=== PATIENT | male | born 1995 | race Two or more races ===

== ENCOUNTER 2019-01-16 04:21 | Emergency (ER) | payer SELFPAY ==
[~2019-01-16] VITALS: Ht 180.3 cm; Wt 113.4 kg
[2019-01-16] MEDS ORDERED: ABILIFY15 MG ORAL (04:30)
[2019-01-16] MEDS ORDERED: LEXAPRO10 MG ORAL (04:30)
[2019-01-16] MEDS ORDERED: NEURONTIN100 MG ORAL (04:30)
--- NOTE | 2019-01-16 04:37 | Emergency Room Report ---
History of Present Illness General Source: Patient, EMS, Law Enforcement (Tino Hayes MD) Present Illness HPI Patient presents with cuts to his hand after punching a glass window. His history of schizophrenia and said he wanted to harm himself. PD were summoned to the house by his mother. He has some cuts on his right hand. PD summoned EMS. They transported the patient to us. The patient denies suicidal ideation at this time. He states he's been taking his Abilify. He says he takes 30 mg. He was last hospitalized 2 weeks ago at [facility]. They didn't change his medications. He was hospitalized for 3 days. He denies other somatic complaints at this time. Last tetanus 1 year ago. (Tino Hayes MD) Allergies: Coded Allergies: No Known Allergies (Unverified , 01/16/19) Patient History Past Medical History: see triage record Social History: Denies: smoking, alcohol use, drug use Social History Narrative lives with Mom Reviewed Nursing Documentation: PMH: Agreed; PSxH: Agreed (Tino Hayes MD) Review of Systems All Other Systems: negative except mentioned in HPI (Tino Hayes MD) Physical Exam Vital Signs Date Time Temp Pulse Resp B/P (MAP) Pulse Ox O2 Delivery O2 Flow Rate FiO2 01/16/19 04:27 98.4 88 16 126/90 100 Room Air Sp02 EP Interpretation: reviewed, normal General Appearance: well appearing, no apparent distress, GCS 15, obese Head: normocephalic Eyes: bilateral eye normal inspection, bilateral eye PERRL, bilateral eye EOMI ENT: moist mucus membranes Neck: supple Respiratory: lungs clear, normal breath sounds Cardiovascular #1: regular rate, rhythm Cardiovascular #2: 2+ radial (R) Gastrointestinal: normal inspection, normal bowel sounds, non tender, no mass, non-distended Musculoskeletal: back normal, gait/station normal, normal range of motion Neurologic: alert, oriented x3 Psychiatric: no suicidal/homicidal ideation, depressed affect, other - he states he is sane at this time Skin: normal inspection, warm/dry, other - striae (Tino Hayes MD) Medical Decision Making Diagnostic Impression: Primary Impression: Schizoaffective disorder-chronic with exacerbation Additional Impressions: Leukocytosis Qualified Codes: D72.828 - Other elevated white blood cell count Superficial laceration of hand Qualified Codes: S61.411A - Laceration without foreign body of right hand, initial encounter ER Course Patient presents with PD with history of schizophrenia and acting out. Differential includes exacerbation of schizoaffective disorder, impulsive behavior, electrolyte imbalance, drug ingestion amongst others. Evaluation will be with labs. The patient is no longer suicidal at this time however requires observation and as severe as the police are patient patient on a 5150. Patient appears cushingoid and cortisol level was drawn. It may not be relevant if this is a send out. Labs with leukocytosis. Patient afebrile. Will hydrate and repeat. Sign out to Dr. Díaz. Laboratory Tests Test 01/16/19 04:40 01/16/19 07:30 White Blood Count 18.3 K/UL (4.8-10.8) H 15.3 K/UL (4.8-10.8) H Red Blood Count 5.51 M/UL (4.70-6.10) 4.89 M/UL (4.70-6.10) Hemoglobin 16.9 G/DL (14.2-18.0) 15.0 G/DL (14.2-18.0) Hematocrit 50.4 % (42.0-52.0) 45.6 % (42.0-52.0) Mean Corpuscular Volume 92 FL (80-99) 93 FL (80-99) Mean Corpuscular Hemoglobin 30.7 PG (27.0-31.0) 30.7 PG (27.0-31.0) Mean Corpuscular Hemoglobin Concent 33.5 G/DL (32.0-36.0) 32.9 G/DL (32.0-36.0) Red Cell Distribution Width 12.1 % (11.6-14.8) 12.2 % (11.6-14.8) Platelet Count 379 K/UL (150-450) 336 K/UL (150-450) Mean Platelet Volume 6.3 FL (6.5-10.1) L 6.8 FL (6.5-10.1) Neutrophils (%) (Auto) % (45.0-75.0) 64.7 % (45.0-75.0) Lymphocytes (%) (Auto) % (20.0-45.0) 26.8 % (20.0-45.0) Monocytes (%) (Auto) % (1.0-10.0) 5.4 % (1.0-10.0) Eosinophils (%) (Auto) % (0.0-3.0) 2.4 % (0.0-3.0) Basophils (%) (Auto) % (0.0-2.0) 0.8 % (0.0-2.0) Urine Color Pale yellow Urine Appearance Clear Urine pH 6.5 (4.5-8.0) Urine Specific Clark 1.015 (1.005-1.035) Urine Protein Negative (NEGATIVE) Urine Glucose (UA) Negative (NEGATIVE) Urine Ketones Negative (NEGATIVE) Urine Blood Negative (NEGATIVE) Urine Nitrite Negative (NEGATIVE) Urine Bilirubin Negative (NEGATIVE) Urine Urobilinogen 4 MG/DL (0.0-1.0) H Urine Leukocyte Esterase Negative (NEGATIVE) Sodium Level 138 MMOL/L (136-145) Potassium Level 3.7 MMOL/L (3.5-5.1) Chloride Level 100 MMOL/L (98-107) Carbon Dioxide Level 27 MMOL/L (21-32) Anion Gap 11 mmol/L (5-15) Blood Urea Nitrogen 12 mg/dL (7-18) Creatinine 0.9 MG/DL (0.55-1.30) Estimate Glomerular Filtration Rate > 60 mL/min (>60) Glucose Level 121 MG/DL (74-106) H Calcium Level 9.4 MG/DL (8.5-10.1) Total Bilirubin 0.3 MG/DL (0.2-1.0) Aspartate Amino Transferase (AST) 24 U/L (15-37) Alanine Aminotransferase (ALT) 62 U/L (12-78) Alkaline Phosphatase 108 U/L (46-116) Total Creatine Kinase 151 U/L (26-308) Total Protein 8.5 G/DL (6.4-8.2) H Albumin 3.6 G/DL (3.4-5.0) Globulin 4.9 g/dL Albumin/Globulin Ratio 0.7 (1.0-2.7) L Thyroid Stimulating Hormone (TSH) 2.713 uiU/mL (0.358-3.740) Cortisol 7.2 UG/DL Salicylates Level 3.4 ug/mL (2.8-20) Urine Opiates Screen Negative (NEGATIVE) Acetaminophen Level < 2 MCG/ML (10-30) L Urine Barbiturates Screen Negative (NEGATIVE) Phencyclidine (PCP) Screen Negative (NEGATIVE) Urine Amphetamines Screen Negative (NEGATIVE) Urine Benzodiazepines Screen Negative (NEGATIVE) Urine Cocaine Screen Negative (NEGATIVE) Urine Marijuana (THC) Screen Negative (NEGATIVE) Serum Alcohol < 3 mg/dL (Tino Hayes MD) ER Course patient's wbc has decreased from 18k to 15k, with no bandemia or leftward shift , so patient is medically cleared by me at this time. Pt accepted by Dr. Vazquez at [facility]. (KILLIAN DÍAZ M.D) Last Vital Signs Date Time Temp Pulse Resp B/P (MAP) Pulse Ox O2 Delivery O2 Flow Rate FiO2 01/16/19 12:35 98.7 98 14 121/63 97 Room Air Status: improved (Tino Hayes MD) Disposition: XFER SHT-TRM HOSP Condition: Serious Tino Hayes MD Jan 16, 2019 04:37 KILLIAN DÍAZ M.D Jan 16, 2019 08:24
[2019-01-16 04:45] VITALS: BP 126/90
[2019-01-16] MEDS ORDERED: Bacitracin Oint UD TOPIC ONE (04:45)
[2019-01-16 05:01] LABS: APPEARANCE,URINE CLEAR; BILIRUBIN, URINE NEGATIVE (NEGATIVE); COLOR,URINE PALE YELLOW; GLUCOSE, URINE (UA) NEGATIVE (NEGATIVE); KETONES,URINE NEGATIVE (NEGATIVE); LEUKOCYTE ESTERASE ,URINE NEGATIVE (NEGATIVE); NITRITE,URINE NEGATIVE (NEGATIVE); PH,URINE 6.5 (4.5-8.0); UROBILINOGEN,URINE 4 MG/DL (0.0-1.0)
[2019-01-16 05:03] LABS: HEMATOCRIT 50.4 % (42.0-52.0); HEMOGLOBIN 16.9 G/DL (14.2-18.0); MEAN CORPUSCULAR VOLUME 92 FL (80-99); PLATELET COUNT 379 K/UL (150-450); RED BLOOD COUNT 5.51 M/UL (4.70-6.10); RED CELL DISTRIBUTION WIDTH 12.1 % (11.6-14.8); WHITE BLOOD COUNT 18.3 K/UL (4.8-10.8)
[2019-01-16 05:06] LABS: ANION GAP 11 mmol/L (5-15); BLOOD UREA NITROGEN 12 mg/dL (7-18); CALCIUM 9.4 MG/DL (8.5-10.1); CARBON DIOXIDE 27 MMOL/L (21-32); CHLORIDE 100 MMOL/L (98-107); CREATININE 0.9 MG/DL (0.55-1.30); POTASSIUM 3.7 MMOL/L (3.5-5.1); PROTEIN,URINE NEGATIVE (NEGATIVE); SODIUM 138 MMOL/L (136-145)
[2019-01-16 05:18] LABS: ALANINE AMINOTRANSFERASE 62 U/L (12-78); ALBUMIN 3.6 G/DL (3.4-5.0); ALBUMIN/GLOBULIN RATIO 0.7 (1.0-2.7); ALKALINE PHOSPHATASE 108 U/L (46-116); ASPARTATE AMINO TRANSFERASE 24 U/L (15-37); BILIRUBIN,TOTAL 0.3 MG/DL (0.2-1.0); CREATINE KINASE 151 U/L (26-308)
[2019-01-16 06:06] VITALS: BP 116/66
[2019-01-16 07:36] VITALS: BP 120/61
[2019-01-16 07:43] LABS: BASOPHILS % (AUTO) 0.8 % (0.0-2.0); EOSINOPHILS % (AUTO) 2.4 % (0.0-3.0); HEMATOCRIT 45.6 % (42.0-52.0); LYMPHOCYTES % (AUTO) 26.8 % (20.0-45.0); MEAN CORPUSCULAR VOLUME 93 FL (80-99); MONOCYTES % (AUTO) 5.4 % (1.0-10.0); NEUTROPHILS % (AUTO) 64.7 % (45.0-75.0); PLATELET COUNT 336 K/UL (150-450); RED BLOOD COUNT 4.89 M/UL (4.70-6.10); RED CELL DISTRIBUTION WIDTH 12.2 % (11.6-14.8); WHITE BLOOD COUNT 15.3 K/UL (4.8-10.8)
[2019-01-16 09:02] VITALS: BP 114/65
[2019-01-16 12:35] VITALS: BP 121/63
[2019-01-16 13:30] VITALS: BP 121/63
== END 2019-01-16 13:32 ==
LOC: EDBD 04:21 → EMR 04:55
DX: F25.9 Schizoaffective disorder, unspecified (principal); D72.828 Other elevated white blood cell count; S61.411A Laceration without foreign body of right hand, initial encounter; X78.0XXA Intentional self-harm by sharp glass, initial encounter; Y92.9 Unspecified place or not applicable; E66.9 Obesity, unspecified; Z68.34 Body mass index [BMI] 34.0-34.9, adult
CPT/HCPCS: 36415; 80053; 80307; 81003; 82533; 82550; 84443; 85025; 96360; 99284; G0480; 80329